=== PATIENT | female | born 1990 ===

== ENCOUNTER 2021-11-02 16:51 | Outpatient (CLI) | payer SELFPAY ==
[2021-11-02 18:38] LABS: Bacteria,Urine 1+ /HPF (Negative)
[2021-11-02 19:01] LABS: Color,Urine Yellow (Yellow)
[2021-11-02 19:31] VITALS: BP 116/67
== END 2021-11-02 19:37 | disposition home or self-care (01) ==
LOC: TRG 16:51 → APU 16:56 → TRG 19:37
PROVIDERS: ATTEND Obstetrics & Gynecology Gynecology
DX: Z34.93 Encounter for supervision of normal pregnancy, unspecified, third trimester (principal); Z3A.39 39 weeks gestation of pregnancy
CPT/HCPCS: 59025; 81001

== ENCOUNTER 2021-11-10 02:46 | Inpatient (IN) | payer SELFPAY ==
[2021-11-10] MEDS ORDERED: ePHEDrine SULFATE 50 MG/1 ML INJ IV PRN ×2 (03:29→12:00)
[2021-11-10] MEDS ORDERED: fentaNYL 100 MCG/2 ML INJ IV PRN ×2 (03:29→12:11)
[2021-11-10] MEDS ORDERED: METHYLERGONOVINE MALEATE 0.2 MG/ML VIAL IM PRN (03:29)
[2021-11-10] MEDS ORDERED: ACETAMINOPHEN 325 MG TAB PO PRN (03:29)
[2021-11-10] MEDS ORDERED: CARBOPROST TROMETHAMINE 250 MCG/1 ML INJ IM PRN (03:29)
[2021-11-10] MEDS ORDERED: TERBUTALINE 1 MG/1 ML INJ SUB-Q PRN (03:29)
[2021-11-10] MEDS ORDERED: BUTORPHANOL 2 MG/1 ML INJ IV PRN (03:29)
[2021-11-10] MEDS ORDERED: LACTATED RINGERS 1,000 ML IV SCH (03:30)
--- NOTE | 2021-11-10 03:33 | History and Physical Report ---
History of Present Illness Date of examination: 11/10/21 Date of admission: 11/10/2021 Chief complaint: Leaking of fluid History of present illness: 31-year-old primagravida at 40-4/7 weeks gestation presents to OB triage reporting leaking of fluid and contractions every 3 to 5 minutes apart. There is no vaginal bleeding. There is good movement. In OB triage, cervix was 3 cm dilated. ROM plus was negative. OB ultrasound limited revealed that JONATHAN= 2.5 cm. As such, this fulfills the contemporary criteria for oligohydramnios. Etiology is likely secondary to her post-due date status. The patient is admitted to labor and delivery for induction of labor secondary to oligohydramnios and post-due date. Past History - Obstetrical History Expected Date of Delivery: 11/06/21 Actual Gestation: 40 Week(s) 4 Day(s) : 1 Para: 0 Hx # Term Pregnancies: 0 Number of Pregnancies: 0 Spontaneous Abortions: 0 Induced : 0 Number of Living Children: 0 Medications and Allergies Allergies Allergy/AdvReac Type Severity Reaction Status Date / Time No Known Allergies Allergy Verified 11/02/21 17:28 Active Meds: Active Medications Acetaminophen (Acetaminophen 325 Mg Tab) 650 mg PO Q4H PRN PRN Reason: Pain, Mild (1-3) Butorphanol Tartrate (Butorphanol 2 Mg/1 Ml Inj) 2 mg IV Q2H PRN PRN Reason: Pain, Moderate(4-6) LABOR PAIN Carboprost Tromethamine (Carboprost Tromethamine 250 Mcg/1 Ml Inj) 250 mcg IM ONCE PRN PRN Reason: Uterine Bleeding Ephedrine Sulfate (Ephedrine Sulfate 50 Mg/1 Ml Inj) 10 mg IV Q2M PRN PRN Reason: Hypotension Fentanyl (Fentanyl 100 Mcg/2 Ml Inj) 100 mcg IV Q2H PRN PRN Reason: Pain,Severe (7-10) LABOR PAIN Oxytocin/Sodium Chloride (Pitocin/Ns 30 Unit/500ml) 30 units in 500 mls @ 2 mls/hr IV TITR MARNI; Protocol Lactated Ringer's (Lactated Ringers) 1,000 mls @ 125 mls/hr IV DIRECT MARNI Oxytocin/Sodium Chloride (Pitocin/Ns 30 Unit/500ml) 30 units in 500 mls @ 40 mls/hr IV TITR MARNI; Protocol Methylergonovine Maleate (Methylergonovine Maleate 0.2 Mg/Ml Vial) 0.2 mg IM ONCE PRN PRN Reason: Uterine Bleeding Terbutaline Sulfate (Terbutaline 1 Mg/1 Ml Inj) 0.25 mg SUB-Q ONCE PRN PRN Reason: Hyperstimulation/Hypertonicity Review of Systems All systems: negative - Physical Exam Breasts: Positive: normal Cardiovascular: Regular rate Lungs: Positive: Normal air movement Genitourinary (Female): Positive: normal external genitalia, normal perenium Vulva: both: normal Vagina: Positive: normal moisture Uterus: Positive: enlarged Adnexa: both: normal Anus/Rectum: Positive: normal perianal skin Extremities: Positive: normal Deep Tendon Reflex Grade: Normal +2 - Obstetrical FHR: category 1 Cervical Dilatation: 3 (Soft) Cervical Effacement Percentage: 50 (Mid) station: -3 Uterine Contraction Frequency (min): 3 Uterine Contraction Pattern: Regular Results Result Diagrams: 11/10/21 04:43 All other labs normal. Ultrasound: pending, report reviewed, other (OB Ultrasound Limited= SLIUP. Vertex. Fundal placenta. EFW= 3387 g (24th %-ile). JONATHAN= 2.5 cm.) Assessment and Plan - Patient Problems (1) 40 weeks gestation of Current Visit: Yes Status: Acute Plan to address problem: care is up-to-date. She is GBS negative. (2) Postmaturity , 40-42 weeks gestation Current Visit: Yes Status: Acute Plan to address problem: Admit to labor delivery for induction of labor. (3) Oligohydramnios in third trimester Current Visit: Yes Status: Acute Qualifiers: Fetus number: single or unspecified fetus Qualified Code(s): O41.03X0 - Oligohydramnios, third trimester, not applicable or unspecified Plan to address problem: OB ultrasound limited revealed that JONATHAN= 2.5 cm. ROM plus is negative. As such, this fulfills the contemporary criteria for the diagnosis of oligohydramnios. As such, induction of labor is medically indicated. (4) Encounter for induction of labor Current Visit: Yes Status: Acute Plan to address problem: Admit to labor and delivery. Start Pitocin per protocol. Artificially rupture membranes when possible.
[2021-11-10] MEDS ORDERED: OXYTOCIN DRIP 30 UNITS/500 ML BAG IV SCH ×2 (04:00)
--- NOTE | 2021-11-10 04:09 | Ultrasound Report ---
ULTRASOUND OBSTETRIC INDICATION / CLINICAL INFORMATION: Leaking of fluid, Post-due date. - Clinical Gestational Age (GA) in weeks, days: 40 weeks 4 days TECHNIQUE: Transabdominal. COMPARISON: None available. FINDINGS: Single intrauterine . Biparietal Diameter = 9.2 cm = 37, 2 weeks, days Head Circumference = 33.2 cm = 37, 6 weeks, days Abdominal Circumference = 34.6 cm = 38, 3 weeks, days Femur Length = 7.4 cm = 37, 5 weeks, days Average Ultrasound Age (AUA) = 37, 6 weeks, days Heart Rate: 135 beats per minute. Estimated Weight in grams (if calculated): 3387 Estimated Weight Growth Percentile (if calculated): 24% Position: cephalic. Placenta: Fundal and free of the os. Amniotic Fluid Volume: decreased Amniotic Fluid Index (JONATHAN) in cm (if calculated): 2.5 cm. Maternal Adnexa: No significant abnormality. IMPRESSION: 1. Single, living intrauterine with estimated sonographic age of 37 weeks, 6 days. 2. Oligohydramnios, likely secondary to premature rupture of membranes. Signer Name: Kristopher Silveira MD Signed: 11/10/2021 4:05 AM Workstation Name: [id number]
[2021-11-10 06:01] LABS: Hematocrit 32.4 % (30.3-42.9); Mean Corpuscular HGB Conc 34 % (30-34); Mean Corpuscular Volume 73 fl (79-97); Platelet Count 370 K/mm3 (140-440); Red Blood Count 4.42 M/mm3 (3.65-5.03); Red Cell Distribution Width 17.6 % (13.2-15.2)
[2021-11-10] MEDS ORDERED: fentaNYL-BUPIV 2 MCG/ML-0.125% 200 MCG/100 ML BAG EPIDURAL ONE (09:16)
--- NOTE | 2021-11-10 11:55 | Anesthesia Day of Surgery ---
Anesthesia Day of Surgery - Day of Surgery Patient Examined: Yes Patient H&P Reviewed: Yes Patient is NPO: Yes Beta Blockers: No Cardiac Clearance: No Pulmonary Clearance: No Ryan's Test: N/A
--- NOTE | 2021-11-10 11:55 | Anesthesia Consultation ---
Anesthesia Consult and Med Hx Date of service: 11/10/21 - Airway Anesthetic Teeth Evaluation: Good ROM Head & Neck: Adequate Mental/Hyoid Distance: Adequate Mallampati Class: Class II Intubation Access Assessment: Probably Good - Pulmonary Exam CTA: Yes - Cardiac Exam Cardiac Exam: RRR - Pre-Operative Health Status ASA Pre-Surgery Classification: ASA3 Proposed Anesthetic Plan: Epidural - Pulmonary Hx Smoking: No Hx Asthma: No Hx Respiratory Symptoms: No SOB: No COPD: No Home Oxygen Therapy: No Hx Pneumonia: No Hx Sleep Apnea: No - Cardiovascular System Hx Hypertension: No Hx Coronary Artery Disease: No Hx Heart Attack/AMI: No Hx Angina: No Hx Percutaneous Transluminal Coronary Angioplasty (PTCA): No Hx Cardia Arrhythmia: No Hx Pacemaker: No Hx Internal Defibrillator: No Hx Valvular Heart Disease: No Hx Heart Murmur: No Hx Peripheral Vascular Disease: No - Central Nervous System Hx Neuromuscular Disorder: No Hx Seizures: No CVA: No Hx Back Pain: No Hx Psychiatric Problems: No - Gastrointestinal Hx Ulcer: No Hx Gastroesophageal Reflux Disease: No - Endocrine Hx Renal Disease: No Hx End Stage Renal Disease: No Hx Cirrhosis: No Hx Liver Disease: No Hx Insulin Dependent Diabetes: No Hx Non-Insulin Dependent Diabetes: No Hx Thyroid Disease: No Hx Hypothyroidism: No Hx Hyperthyroidism: No - Hematic Hx Anemia: No Hx Sickle Cell Disease: No - Other Systems Hx Alcohol Use: No Hx Substance Use: No Hx Cancer: No Hx Obesity: Yes
--- NOTE | 2021-11-10 11:56 | Progress Note ---
Labor Epidural - Labor Epidural Start Time: 11:33 Stop Time: 11:44 Performed by:: NEELAM TREVINO Procedure: Epidural Requested for Labor Pain. H&P and PT Chart reviewed and consent obtained. Time out performed and the procedure was explained, all questions answered. Patient was placed in a sitting position with monitors applied. The PTs back was prepped and draped in usual sterile fashion. The Skin was localized with 3 mL of 1% lidocaine at L3-L4. A 17-gauge Touhy epidural needle was advanced to TONY with saline at 7 cm and no blood/CSF was noted via epidural needle. Epidural catheter was advanced to 12 cm. There was negative aspiration for blood and CSF in the catheter and negative response to a test dose of 3 ml 1.5% lidocaine w/ Epi and a sterile dressing was applied Patient tolerated the procedure well and there were no immediate complications noted.
[2021-11-10] MEDS ORDERED: NALOXONE 0.4 MG/1 ML INJ IV PRN (12:00)
[2021-11-10] MEDS: fentaNYL-BUPIV 2 MCG/ML-0.125% 200 MCG/100 ML BAG EPIDURAL SCH ×2 (12:27→20:21)
[2021-11-10] MEDS ORDERED: AMPICILLIN/NS 2 GM/100 ML 2 GM/100 ML BAG IV ONE (16:35)
--- NOTE | 2021-11-10 16:45 | Progress Note ---
Assessment and Plan A: IUP @ 40 4/7 Weeks Category I Tracing Elevated Maternal Temperature (100.3) Maternal Tachycardia Protracted Labor GBS Negative P: Internals x 2 Ampicillin 2G Now; then 1G q 4 hours Tylenol 650mg PO q 4-6 hours Continue Pitocin Augmentation Multiple Maternal Position Changes Subjective - Subjective Date of service: 11/10/21 Patient reports: movement normal, other (Resting well under epidural anesthesia) Objective - Vital Signs Vital Signs: Vital Signs - 12hr 11/10/21 11/10/21 11/10/21 04:44 04:49 04:54 Temperature Pulse Rate 84 88 90 Respiratory Rate Blood Pressure Blood Pressure [Right] O2 Sat by Pulse 98 99 99 Oximetry O2 Sat by Pulse Oximetry [ Bilateral Throughout] 11/10/21 11/10/21 11/10/21 04:59 05:04 05:09 Temperature Pulse Rate 87 90 90 Respiratory Rate Blood Pressure Blood Pressure [Right] O2 Sat by Pulse 97 100 98 Oximetry O2 Sat by Pulse Oximetry [ Bilateral Throughout] 11/10/21 11/10/21 11/10/21 05:14 05:19 05:24 Temperature Pulse Rate 91 H 89 97 H Respiratory Rate Blood Pressure Blood Pressure [Right] O2 Sat by Pulse 98 99 99 Oximetry O2 Sat by Pulse Oximetry [ Bilateral Throughout] 11/10/21 11/10/21 11/10/21 05:29 05:34 05:38 Temperature Pulse Rate 98 H 94 H 98 H Respiratory Rate Blood Pressure Blood Pressure [Right] O2 Sat by Pulse 99 99 100 Oximetry O2 Sat by Pulse Oximetry [ Bilateral Throughout] 11/10/21 11/10/21 11/10/21 05:41 05:43 05:48 Temperature Pulse Rate 94 H 86 Respiratory Rate Blood Pressure Blood Pressure [Right] O2 Sat by Pulse 99 99 Oximetry O2 Sat by Pulse 99 Oximetry [ Bilateral Throughout] 11/10/21 11/10/21 11/10/21 05:53 05:58 06:03 Temperature Pulse Rate 97 H 93 H 90 Respiratory Rate Blood Pressure Blood Pressure [Right] O2 Sat by Pulse 98 98 97 Oximetry O2 Sat by Pulse Oximetry [ Bilateral Throughout] 11/10/21 11/10/21 11/10/21 06:08 06:13 06:19 Temperature Pulse Rate 95 H 86 85 Respiratory Rate Blood Pressure Blood Pressure [Right] O2 Sat by Pulse 98 99 98 Oximetry O2 Sat by Pulse Oximetry [ Bilateral Throughout] 11/10/21 11/10/21 11/10/21 06:24 06:28 06:33 Temperature Pulse Rate 96 H 87 90 Respiratory Rate Blood Pressure Blood Pressure [Right] O2 Sat by Pulse 98 98 99 Oximetry O2 Sat by Pulse Oximetry [ Bilateral Throughout] 11/10/21 11/10/21 11/10/21 06:38 06:43 06:47 Temperature Pulse Rate 90 91 H 102 H Respiratory Rate Blood Pressure Blood Pressure [Right] O2 Sat by Pulse 98 98 93 Oximetry O2 Sat by Pulse Oximetry [ Bilateral Throughout] 11/10/21 11/10/21 11/10/21 06:48 06:53 06:58 Temperature Pulse Rate 95 H 96 H 97 H Respiratory Rate Blood Pressure Blood Pressure [Right] O2 Sat by Pulse 98 98 98 Oximetry O2 Sat by Pulse Oximetry [ Bilateral Throughout] 11/10/21 11/10/21 11/10/21 07:03 07:08 07:13 Temperature Pulse Rate 99 H 90 Respiratory Rate Blood Pressure Blood Pressure [Right] O2 Sat by Pulse 98 98 Oximetry O2 Sat by Pulse 99 Oximetry [ Bilateral Throughout] 11/10/21 11/10/21 11/10/21 07:14 07:18 07:24 Temperature Pulse Rate 101 H 95 H 101 H Respiratory Rate Blood Pressure Blood Pressure [Right] O2 Sat by Pulse 98 98 98 Oximetry O2 Sat by Pulse Oximetry [ Bilateral Throughout] 11/10/21 11/10/21 11/10/21 07:28 07:33 07:39 Temperature Pulse Rate 92 H 94 H 99 H Respiratory Rate Blood Pressure Blood Pressure [Right] O2 Sat by Pulse 98 99 98 Oximetry O2 Sat by Pulse Oximetry [ Bilateral Throughout] 11/10/21 11/10/21 11/10/21 07:43 07:48 07:53 Temperature Pulse Rate 97 H 99 H 99 H Respiratory Rate Blood Pressure Blood Pressure [Right] O2 Sat by Pulse 98 98 98 Oximetry O2 Sat by Pulse Oximetry [ Bilateral Throughout] 11/10/21 11/10/21 11/10/21 07:58 08:03 08:08 Temperature Pulse Rate 100 H 96 H 92 H Respiratory Rate Blood Pressure Blood Pressure [Right] O2 Sat by Pulse 97 98 97 Oximetry O2 Sat by Pulse Oximetry [ Bilateral Throughout] 0911/10/21 11/10/21 08:10 08:14 08:18 Temperature 98.6 F Pulse Rate 82 95 H 95 H Respiratory 18 Rate Blood Pressure Blood Pressure 128/75 [Right] O2 Sat by Pulse 98 98 98 Oximetry O2 Sat by Pulse Oximetry [ Bilateral Throughout] 11/10/21 11/10/21 11/10/21 08:23 08:29 08:33 Temperature Pulse Rate 104 H 95 H 98 H Respiratory Rate Blood Pressure Blood Pressure [Right] O2 Sat by Pulse 98 98 98 Oximetry O2 Sat by Pulse Oximetry [ Bilateral Throughout] 11/10/21 11/10/21 11/10/21 08:38 08:43 08:48 Temperature Pulse Rate 101 H 95 H 94 H Respiratory Rate Blood Pressure Blood Pressure [Right] O2 Sat by Pulse 97 97 99 Oximetry O2 Sat by Pulse Oximetry [ Bilateral Throughout] 11/10/21 11/10/21 11/10/21 08:53 08:58 09:03 Temperature Pulse Rate 92 H 90 89 Respiratory Rate Blood Pressure Blood Pressure [Right] O2 Sat by Pulse 97 99 99 Oximetry O2 Sat by Pulse Oximetry [ Bilateral Throughout] 11/10/21 11/10/21 11/10/21 09:08 09:13 09:18 Temperature Pulse Rate 97 H 96 H 92 H Respiratory Rate Blood Pressure Blood Pressure [Right] O2 Sat by Pulse 99 98 98 Oximetry O2 Sat by Pulse Oximetry [ Bilateral Throughout] 11/10/21 11/10/21 11/10/21 09:23 09:28 09:33 Temperature Pulse Rate 89 96 H 92 H Respiratory Rate Blood Pressure Blood Pressure [Right] O2 Sat by Pulse 98 98 98 Oximetry O2 Sat by Pulse Oximetry [ Bilateral Throughout] 11/10/21 11/10/21 11/10/21 09:39 09:43 09:48 Temperature Pulse Rate 83 81 82 Respiratory Rate Blood Pressure Blood Pressure [Right] O2 Sat by Pulse 98 98 99 Oximetry O2 Sat by Pulse Oximetry [ Bilateral Throughout] 11/10/21 11/10/21 11/10/21 09:54 09:58 10:00 Temperature Pulse Rate 91 H 87 90 Respiratory Rate Blood Pressure Blood Pressure [Right] O2 Sat by Pulse 99 99 94 Oximetry O2 Sat by Pulse Oximetry [ Bilateral Throughout] 11/10/21 11/10/21 11/10/21 10:03 10:08 10:13 Temperature Pulse Rate 87 86 86 Respiratory Rate Blood Pressure Blood Pressure [Right] O2 Sat by Pulse 98 97 99 Oximetry O2 Sat by Pulse Oximetry [ Bilateral Throughout] 11/10/21 11/10/21 11/10/21 10:18 10:23 10:28 Temperature Pulse Rate 89 91 H 98 H Respiratory Rate Blood Pressure Blood Pressure [Right] O2 Sat by Pulse 99 99 98 Oximetry O2 Sat by Pulse Oximetry [ Bilateral Throughout] 11/10/21 11/10/21 11/10/21 10:33 10:38 10:40 Temperature Pulse Rate 88 80 Respiratory 18 Rate Blood Pressure Blood Pressure [Right] O2 Sat by Pulse 97 97 Oximetry O2 Sat by Pulse Oximetry [ Bilateral Throughout] 11/10/21 11/10/21 11/10/21 10:43 10:48 10:53 Temperature Pulse Rate 81 81 81 Respiratory Rate Blood Pressure Blood Pressure [Right] O2 Sat by Pulse 96 96 97 Oximetry O2 Sat by Pulse Oximetry [ Bilateral Throughout] 11/10/21 11/10/21 11/10/21 10:58 11:03 11:08 Temperature Pulse Rate 85 78 83 Respiratory Rate Blood Pressure Blood Pressure [Right] O2 Sat by Pulse 99 98 99 Oximetry O2 Sat by Pulse Oximetry [ Bilateral Throughout] 11/10/21 11/10/21 11/10/21 11:13 11:18 11:23 Temperature Pulse Rate 88 78 83 Respiratory Rate Blood Pressure Blood Pressure [Right] O2 Sat by Pulse 97 99 99 Oximetry O2 Sat by Pulse Oximetry [ Bilateral Throughout] 11/10/21 11/10/21 11/10/21 11:28 11:32 11:33 Temperature Pulse Rate 89 98 H 107 H Respiratory Rate Blood Pressure Blood Pressure [Right] O2 Sat by Pulse 99 89 98 Oximetry O2 Sat by Pulse Oximetry [ Bilateral Throughout] 11/10/21 11/10/21 11/10/21 11:38 11:43 11:48 Temperature Pulse Rate 93 H 100 H 95 H Respiratory Rate Blood Pressure Blood Pressure [Right] O2 Sat by Pulse 100 99 99 Oximetry O2 Sat by Pulse Oximetry [ Bilateral Throughout] 11/10/21 11/10/21 11/10/21 11:53 11:58 12:03 Temperature Pulse Rate 88 82 93 H Respiratory Rate Blood Pressure 134/76 Blood Pressure [Right] O2 Sat by Pulse 100 100 100 Oximetry O2 Sat by Pulse Oximetry [ Bilateral Throughout] 11/10/21 11/10/21 11/10/21 12:08 12:13 12:16 Temperature Pulse Rate 97 H 94 H 88 Respiratory Rate Blood Pressure 107/65 Blood Pressure [Right] O2 Sat by Pulse 97 100 Oximetry O2 Sat by Pulse Oximetry [ Bilateral Throughout] 11/10/21 11/10/21 11/10/21 12:18 12:23 12:28 Temperature Pulse Rate 88 96 H 81 Respiratory Rate Blood Pressure Blood Pressure [Right] O2 Sat by Pulse 100 100 100 Oximetry O2 Sat by Pulse Oximetry [ Bilateral Throughout] 11/10/21 11/10/21 11/10/21 12:32 12:33 12:38 Temperature Pulse Rate 76 73 78 Respiratory Rate Blood Pressure 97/52 Blood Pressure [Right] O2 Sat by Pulse 100 100 Oximetry O2 Sat by Pulse Oximetry [ Bilateral Throughout] 11/10/21 11/10/21 11/10/21 12:43 12:47 12:48 Temperature Pulse Rate 84 74 83 Respiratory Rate Blood Pressure 96/52 Blood Pressure [Right] O2 Sat by Pulse 100 100 Oximetry O2 Sat by Pulse Oximetry [ Bilateral Throughout] 11/10/21 11/10/21 11/10/21 12:53 12:58 13:02 Temperature Pulse Rate 86 84 83 Respiratory Rate Blood Pressure 88/54 Blood Pressure [Right] O2 Sat by Pulse 100 100 Oximetry O2 Sat by Pulse Oximetry [ Bilateral Throughout] 11/10/21 11/10/21 11/10/21 13:03 13:08 13:13 Temperature Pulse Rate 76 88 81 Respiratory Rate Blood Pressure Blood Pressure [Right] O2 Sat by Pulse 100 100 100 Oximetry O2 Sat by Pulse Oximetry [ Bilateral Throughout] 11/10/21 11/10/21 11/10/21 13:16 13:18 13:23 Temperature Pulse Rate 85 78 73 Respiratory Rate Blood Pressure 94/54 Blood Pressure [Right] O2 Sat by Pulse 100 100 Oximetry O2 Sat by Pulse Oximetry [ Bilateral Throughout] 11/10/21 11/10/21 11/10/21 13:28 13:32 13:33 Temperature Pulse Rate 74 71 77 Respiratory Rate Blood Pressure 95/52 Blood Pressure [Right] O2 Sat by Pulse 100 100 Oximetry O2 Sat by Pulse Oximetry [ Bilateral Throughout] 11/10/21 11/10/2111/10/22 13:38 13:43 13:46 Temperature Pulse Rate 82 89 98 H Respiratory Rate Blood Pressure 100/55 Blood Pressure [Right] O2 Sat by Pulse 100 100 Oximetry O2 Sat by Pulse Oximetry [ Bilateral Throughout] 11/10/21 11/10/21 11/10/21 13:48 13:53 13:55 Temperature Pulse Rate 107 H 96 H 70 Respiratory Rate Blood Pressure Blood Pressure [Right] O2 Sat by Pulse 100 100 84 Oximetry O2 Sat by Pulse Oximetry [ Bilateral Throughout] 11/10/21 11/10/21 11/10/21 13:58 14:03 14:08 Temperature Pulse Rate 107 H 91 H 94 H Respiratory Rate Blood Pressure 119/71 Blood Pressure [Right] O2 Sat by Pulse 100 100 100 Oximetry O2 Sat by Pulse Oximetry [ Bilateral Throughout] 11/10/21 11/10/21 11/10/21 14:13 14:18 14:23 Temperature Pulse Rate 82 87 81 Respiratory Rate Blood Pressure 98/53 Blood Pressure [Right] O2 Sat by Pulse 100 100 99 Oximetry O2 Sat by Pulse Oximetry [ Bilateral Throughout] 11/10/21 11/10/21 11/10/21 14:28 14:33 14:38 Temperature Pulse Rate 94 H 94 H 95 H Respiratory Rate Blood Pressure 95/53 Blood Pressure [Right] O2 Sat by Pulse 100 100 100 Oximetry O2 Sat by Pulse Oximetry [ Bilateral Throughout] 11/10/21 11/10/21 11/10/21 14:43 14:46 14:48 Temperature Pulse Rate 91 H 88 93 H Respiratory Rate Blood Pressure 96/53 Blood Pressure [Right] O2 Sat by Pulse 100 100 Oximetry O2 Sat by Pulse Oximetry [ Bilateral Throughout] 11/10/21 11/10/21 11/10/21 14:53 14:57 14:58 Temperature 98.1 F Pulse Rate 90 87 Respiratory 16 Rate Blood Pressure Blood Pressure [Right] O2 Sat by Pulse 100 100 Oximetry O2 Sat by Pulse Oximetry [ Bilateral Throughout] 11/10/21 11/10/21 11/10/21 15:02 15:03 15:08 Temperature Pulse Rate 93 H 99 H 104 H Respiratory Rate Blood Pressure 96/54 Blood Pressure [Right] O2 Sat by Pulse 100 99 Oximetry O2 Sat by Pulse Oximetry [ Bilateral Throughout] 11/10/21 11/10/21 11/10/21 15:13 15:17 15:18 Temperature Pulse Rate 94 H 86 98 H Respiratory Rate Blood Pressure 109/53 Blood Pressure [Right] O2 Sat by Pulse 100 100 Oximetry O2 Sat by Pulse Oximetry [ Bilateral Throughout] 11/10/21 11/10/21 11/10/21 15:23 15:28 15:32 Temperature Pulse Rate 89 104 H 93 H Respiratory Rate Blood Pressure 105/54 Blood Pressure [Right] O2 Sat by Pulse 100 100 Oximetry O2 Sat by Pulse Oximetry [ Bilateral Throughout] 11/10/21 11/10/21 11/10/21 15:33 15:38 15:43 Temperature Pulse Rate 88 87 91 H Respiratory Rate Blood Pressure Blood Pressure [Right] O2 Sat by Pulse 100 100 100 Oximetry O2 Sat by Pulse Oximetry [ Bilateral Throughout] 11/10/21 11/10/21 11/10/21 15:46 15:48 15:53 Temperature Pulse Rate 89 92 H 88 Respiratory Rate Blood Pressure 108/55 Blood Pressure [Right] O2 Sat by Pulse 100 100 Oximetry O2 Sat by Pulse Oximetry [ Bilateral Throughout] 11/10/21 11/10/21 11/10/21 15:58 16:01 16:03 Temperature Pulse Rate 90 96 H 94 H Respiratory Rate Blood Pressure 112/58 Blood Pressure [Right] O2 Sat by Pulse 100 100 Oximetry O2 Sat by Pulse Oximetry [ Bilateral Throughout] 11/10/21 11/10/21 11/10/21 16:08 16:13 16:16 Temperature Pulse Rate 95 H 101 H 97 H Respiratory Rate Blood Pressure 115/60 Blood Pressure [Right] O2 Sat by Pulse 100 100 Oximetry O2 Sat by Pulse Oximetry [ Bilateral Throughout] 11/10/21 11/10/21 11/10/21 16:18 16:23 16:28 Temperature Pulse Rate 108 H 97 H 101 H Respiratory Rate Blood Pressure Blood Pressure [Right] O2 Sat by Pulse 100 100 95 Oximetry O2 Sat by Pulse Oximetry [ Bilateral Throughout] 11/10/21 11/10/21 16:31 16:33 Temperature Pulse Rate 110 H 106 H Respiratory Rate Blood Pressure 127/70 Blood Pressure [Right] O2 Sat by Pulse 100 Oximetry O2 Sat by Pulse Oximetry [ Bilateral Throughout] - Exam Breasts: normal Lungs: Normal air movement Abdomen: Present: normal appearance, soft Uterus: Present: normal, firm, fundal height above umbilicus FHR: category 1 Uterine Contraction Monitor Mode: Internal Cervical Dilatation: 5 Cervical Effacement Percentage: 80 station: -2 Uterine Contraction Pattern: Regular Uterine Tone Measurement Phase: Resting Uterine Contraction Intensity: Moderate Extremities: normal - Labs Labs: Abnormal Labs 11/10/21 04:43 MCV 73 L MCH 25 L RDW 17.6 H Laboratory Results - last 24 hr 11/10/21 11/10/21 11/10/21 03:24 04:43 04:43 WBC 10.0 RBC 4.42 Hgb 11.0 Hct 32.4 MCV 73 L MCH 25 L MCHC 34 RDW 17.6 H Plt Count 370 Membranes Rupture Negative SARS-CoV-2 (PCR) Blood Type O POSITIVE Antibody Screen Negative 11/10/21 10:57 WBC RBC Hgb Hct MCV MCH MCHC RDW Plt Count Membranes Rupture SARS-CoV-2 (PCR) Negative Blood Type Antibody Screen
[2021-11-10] MEDS ORDERED: AMPICILLIN/NS 1 GM/50 ML 1 GM/50 ML BAG IV SCH (17:00)
[2021-11-10] MEDS ORDERED: LIDOCAINE MPF (2%) 20 MG/1 ML VIAL 5 ML ONE (19:19)
[2021-11-11] MEDS ORDERED: SODIUM CHLORIDE 0.9% IRR 1,500 ML BOTTLE IR ONE (02:57)
[2021-11-11] MEDS ORDERED: WATER FOR IRRIG STERILE 1,500 ML BOTTLE IR ONE (02:57)
[2021-11-11] MEDS ORDERED: OXYTOCIN DRIP 30 UNITS/500 ML BAG IV SCH ×2 (03:00→06:00)
[2021-11-11] MEDS ORDERED: LIDOCAINE MPF (2%) 20 MG/1 ML VIAL 5 ML ONE (03:10)
[2021-11-11] MEDS ORDERED: ePHEDrine SULFATE 50 MG/1 ML INJ ONE (03:10)
[2021-11-11] MEDS ORDERED: PHENYLEPHRINE/NS 1,000 MCG/10 ML SYRINGE (OR USE) IV ONE (03:10)
[2021-11-11] MEDS ORDERED: BUPIVACAINE/PF (0.25%) 2.5 MG/ML 30 ML VIAL INFILTRATI ONE (03:21)
[2021-11-11] MEDS ORDERED: ONDANSETRON 4 MG/2 ML INJ ONE (03:31)
[2021-11-11] MEDS ORDERED: fentaNYL 100 MCG/2 ML INJ ONE (03:43)
[2021-11-11] MEDS ORDERED: ceFAZolin/Water 2 GM/20 ML 2 GM/20 ML SYRINGE IV NR (03:50)
[2021-11-11] MEDS ORDERED: BICITRA ORAL LIQD 30ML PO ONE (03:56)
[2021-11-11] MEDS ORDERED: AZITHROMYCIN/NS 500 MG/250 ML 500 MG/250 ML BAG IV ONE (03:56)
[2021-11-11] MEDS ORDERED: FAMOTIDINE 20 MG/2 ML INJ IV ONE (03:56)
[2021-11-11] MEDS ORDERED: METOCLOPRAMIDE 10 MG/2 ML INJ IV ONE (03:56)
[2021-11-11] MEDS ORDERED: LIDOCAINE 2%/EPINEPHRINE 1:200,000 VIAL (20 ML) INFILTRATI ONE ×2 (04:55→04:57)
[2021-11-11] MEDS ORDERED: ceFAZolin 1 GM VIAL ONE (04:59)
[2021-11-11] MEDS ORDERED: MORPHINE 4 MG/1 ML INJ IV PRN (05:20)
[2021-11-11] MEDS ORDERED: ONDANSETRON 4 MG/2 ML INJ IV PRN (05:20)
[2021-11-11] MEDS ORDERED: NALOXONE 0.4 MG/1 ML INJ IV PRN (05:20)
[2021-11-11] MEDS ORDERED: PROMETHAZINE 25 MG RECT SUPP PR PRN (05:20)
[2021-11-11] MEDS ORDERED: HYDROmorphone 1 MG/1 ML INJ IV PRN (05:20)
[2021-11-11] MEDS ORDERED: PROMETHAZINE 25 MG TAB PO PRN (05:20)
[2021-11-11] MEDS ORDERED: diphenhydrAMINE 50 MG/ML VIAL IV PRN (05:20)
--- NOTE | 2021-11-11 05:33 | Procedure Note ---
OB Delivery Note - Delivery Date of Delivery: 11/11/21 Surgeon: TORRES SMITH Estimated blood loss: 300cc - Section Preop diagnosis: other (1.) IUP at 40-5/7 weeks, 2.) Oligohydramnios, 3.) Category 3 EFM, 4.) Elevated BP, R/O pre-eclampsia.) Postop diagnosis: other (1.) IUP at 40-5/7 weeks, 2.) Oligohydramnios, 3.) Category 3 EFM, 4.) Elevated BP, R/O pre-eclampsia, 5.) Meconium.) section procedure: primary low transverse Disposition: PACU Complications: other ( .) Narrative: PREOPERATIVE DIAGNOSES: 1.) Intrauterine at 40-5/7 weeks gestation. 2.) Oligohydramnios. 3.) Category 3 heart rate tracing. 4.) Elevated blood pressure, rule-out pre-eclampsia. POSTOPERATIVE DIAGNOSES: 1.) Intrauterine at 40-5/7 weeks gestation. 2.) Oligohydramnios. 3.) Category 3 heart rate tracing. 4.) Elevated blood pressure, rule-out pre-eclampsia. 5.) Meconium. PROCEDURE PERFORMED: Primary low-transverse delivery with vacuum assistance. SURGEON: Torres Smith M.D. ANESTHESIA: Epidural. FLUIDS: 2000 mL Lactated Ringer's. ESTIMATED BLOOD LOSS: 300 mL. URINE OUTPUT: 600 mL. COMPLICATIONS: . PATHOLOGY: Placenta sent for pathological examination. FINDINGS: Apgars were 0 at 1 minute, 0 at 5 minutes, 0 at 10 minutes, and 0 at 15 minutes. Normal uterus, tubes, and ovaries were noted. INDICATIONS: The patient is a 31 year-old primagravida at 40-5/7 weeks gestation that was undergoing induction of labor secondary to oligohydramnios. Pitocin was agent that was ordered for induction of labor. Membranes were artificially ruptured. The patient received an epidural. Subsequently, the patient achieved complete cervical dilation, 100% effacement, and 0 station. However, shortly thereafter, the heart rate tracing abruptly changed to a Category 3 heart rate tracing. With shared decision making, the decision was made to proceed with a primary low transverse section. The procedure was described to the patient in detail including possible risks of bleeding, infection, injury to surrounding organs, and possible need for further surgery. Verbal consent was obtained prior to proceeding with the procedure. 0225= Complete cervical dilation to 10 cm. 0238= R.N. summoned M.D. by telephone. 0243= M.D. in LDR #9. 0256= Leaving LDR #9 to O.R.. 0324= Delivery. PROCEDURE NOTE: The patient was taken to the operating room where epidural anesthesia was found to be adequate. Preoperative Ancef and azithromycin were administered. The patient was prepped and draped in the usual sterile fashion in the dorsal supine position with a left-perrin tilt. A Pfannenstiel skin incision was made with the scalpel. That incision was carried through to the underlying layer of fascia using the Bovie. The fascia was incised in the midline with the Bovie and extended laterally using the Bovie. Nat clamps were used to elevate the superior aspect of the fascial incision, which was elevated, and the underlying rectus muscles were dissected off with the Bovie. Attention was then turned to the inferior aspect of the fascial incision, which in similar fashion was grasped with Nat clamps, elevated, and the underlying rectus muscles were dissected off using Phillips scissors and the Bovie. The rectus muscles were dissected in the midline with the Bovie. The peritoneum was sharply dissected with the Metzenbaum scissors, entered, and extended superiorly and inferiorly with good visualization of the bladder. The Lito self-retaining retractor was inserted. The vesicouterine peritoneum was identified with pickups and entered sharply using Metzenbaum scissors. This incision was extended laterally and the bladder flap was created digitally. The bladder blade was inserted. The lower uterine segment was incised in a transverse fashion using the scalpel and extended using manual traction. Meconium was noted. The head was gently elevated out of the pelvis towards the uterine incision. The Kiwi Omnicup as utilized to assist delivering the head atraumatically. Thereafter, the remainder of the infant was delivered atraumatically. There was a nuchal cord and body cord noted during this process. The cord was clamped and cut. The was subsequently handed to the awaiting neonatology team. Cord gases were obtained and sent to the lab for evaluation. Cord blood was obtained. Subsequent to the collection of this blood, the placenta spontaneously expelled intact with a 3-vessel cord noted and meconium staining. The uterus was cleared of all clots and debris. The uterus was left in situ. The uterine incision was repaired with 0 Monocryl in a running fashion. Then, the uterine incision was repaired with a second layer of 0 Monocryl in a horizontal imbricating fashion. The vesicouterine peritoneum was then reapproximated with 3-0 Vicryl in a running fashion. Hemostasis was visualized. Subsequently, the Lito retractor was removed. The pelvis was copiously irrigated. The uterine incision was reexamined and was noted to be hemostatic. The parietal peritoneum was reapproximated with 3-0 Vicryl in a running fashion. Then, the rectus muscles were reapproximated in the midline using 2-0 chromic. The fascia was closed with 0 Vicryl. Then, the subcutaneous layer was closed with 2-0 chromic gut interrupted sutures. Subsequently, the skin was closed with 3-0 Vicryl in a running subdermal fashion. The skin edges were tension-free and well approximated, so Dermabond was then placed atop the skin. Sponge, lap, and instrument counts were correct x2. The patient was stable at the completion of the procedure and was subsequently transferred to the recovery room in stable condition. The neonatology team was unable to resuscitate the infant. Postoperatively, I spoke with the patient, the patient's , and the patient's [id number] in Lithuanian to discuss the findings. In addition, I expressed my condolences. Preeclampsia labs, UPCR, 24 hour urine collection, lactic acid level, blood cultures and urine culture were ordered also. If these tests suggest pre- eclampsia, then I will order an intravenous infusion of magnesium sulfate for 24 hours If these tests suggest sepsis, then I will order intravenous antibiotics and intravenous fluids. - Infant A at 1 minute: 0 at 5 minutes: 0 Infant Gender: Female (Umbilical artery cord gasses were obtained and sent to the lab. Please refer to neonatology records for further information.)
[2021-11-11] MEDS ORDERED: SIMETHICONE 80 MG CHEW TAB PO PRN (05:38)
[2021-11-11] MEDS ORDERED: ACETAMINOPHEN 325 MG TAB PO PRN (05:38)
[2021-11-11] MEDS ORDERED: IBUPROFEN 800 MG TAB PO PRN (05:38)
[2021-11-11] MEDS ORDERED: HYDROcodone/ACETAMINOPHEN 5-325 MG TAB PO PRN (05:38)
--- NOTE | 2021-11-11 05:50 | Procedure Note ---
- Addendum Date: 11/11/21 Attendance - Indication Indication for delivery Attendance: Non-reassuring Status Mode of Delivery: Delivery Room Comment: NICU team called by OB to attend C/S for nonreassuring heart tracing. Fetus was delivered, brought to warmer with no heart rate. Nevertheless, NRP steps were performed with no detectable heart rate despite adequate ventilation and multiple doses of epinephrine. Attempted resuscitation discontinued after 30 minutes with HR still 0. APGARs 0,0,0,0. Family members were notified using Indonesian registered dental assistant. - at 1 minute: 0 at 5 minutes: 0 at 10 minutes: 0 at 15 minutes: 0
[2021-11-11] MEDS ORDERED: fentaNYL-BUPIV 2 MCG/ML-0.125% 200 MCG/100 ML BAG EPIDURAL SCH (06:00)
[2021-11-11 06:26] LABS: Mean Corpuscular HGB Conc 30 % (30-34); Mean Corpuscular Volume 76 fl (79-97); Platelet Count 372 K/mm3 (140-440); Red Blood Count 4.14 M/mm3 (3.65-5.03); Red Cell Distribution Width 17.9 % (13.2-15.2)
[2021-11-11 06:33] LABS: Hematocrit 31.2 % (30.3-42.9); Hemoglobin 9.4 gm/dl (10.1-14.3)
[2021-11-11 06:44] LABS: Creatinine,Urine 50.1 mg/dL (0.1-20.0)
[2021-11-11 06:45] LABS: Alanine Aminotransferase 7 units/L (7-56); Albumin 3.1 g/dL (3.9-5); Blood Urea Nitrogen 6 mg/dL (7-17); Calcium 8.6 mg/dL (8.4-10.2); Hemolysis Index 0; Uric Acid 6.4 mg/dL (3.5-7.6)
[2021-11-11 06:46] LABS: Bilirubin,Urine NEG (Negative); Blood,Urine MOD (Negative); Color,Urine Yellow (Yellow); Mucus,Urine FEW /HPF; Urobilinogen,Urine < 2 mg/dL (<2.0)
[2021-11-11 06:46] LABS: BUN/Creatinine Ratio 9
[2021-11-11] MEDS: HYDROmorphone 1 MG/1 ML INJ IV PRN ×2 (06:58→16:00)
[2021-11-11] MEDS ORDERED: SODIUM CHLORIDE 0.9% 1000 ML 1,000 ML IV ONE (08:00)
[2021-11-11] MEDS ORDERED: MAGNESIUM SULFATE 4 GM/100 ML BAG IV SCH (08:00)
[2021-11-11] MEDS ORDERED: AMPICILLIN 2 GM in SODIUM CHLORIDE 0.9% 50 ML IV SCH (08:00)
[2021-11-11] MEDS: SODIUM CHLORIDE 0.9% 1000 ML 1,000 ML IV SCH ×3 (08:20→19:19)
[2021-11-11 08:21] LABS: Anisocytosis 1+; Band Neutrophils # (Manual) 0.4 K/mm3; Basophils % (Manual) 0 % (0.0-1.8); Eosinophils % (Manual) 0 % (0.0-4.3); Platelet Estimate Consistent w Auto; Total Cells Counted 100
[2021-11-11] MEDS ORDERED: MAGNESIUM SULFATE 40GM/1000ML 40 GM/1,000 ML BAG IV SCH (08:30)
[2021-11-11] MEDS: AMPICILLIN/NS 2 GM/100 ML 2 GM/100 ML BAG IV SCH ×2 (09:35→15:24)
[2021-11-11] MEDS ORDERED: GENTAMICIN 370 MG in SODIUM CHLORIDE 0.9% 100 ML IV SCH (10:00)
[2021-11-11] MEDS ORDERED: HEPARIN 5,000 UNIT/1 ML VIAL SUB-Q SCH (10:00)
[2021-11-11 15:55] VITALS: BP 108/55
--- NOTE | 2021-11-11 21:43 | Post Anesthesia Evaluation ---
- Post Anesthesia Evaluation Patient Participated: No Airway Patent: Yes Stable Respiratory Function: Yes Nausea/Vomiting: No Temp > 96.8F: Yes Pain Manageable: Yes Adequeate Hydration: Yes Anesthesia Complications: No Block Receding Appropriately: Yes Patient on Ventilator: No
== END 2021-11-11 23:42 | disposition home or self-care (01) | DRG 787 ==
LOC: TRG 02:46 → APU 02:48 → LD 03:29 → TRG 08:32 → LD 11-11 07:13
PROVIDERS: ADMIT Obstetrics & Gynecology Gynecology; ATTEND Obstetrics & Gynecology Gynecology
PROC: 10D00Z1 Extraction of Products of Conception, Low, Open Approach (ICD-10-PCS; principal; 2021-11-11)
DX: O76 Abnormality in fetal heart rate and rhythm complicating labor and delivery (principal); O41.03X0 Oligohydramnios, third trimester, not applicable or unspecified; O77.0 Labor and delivery complicated by meconium in amniotic fluid; O48.0 Post-term pregnancy; O99.214 Obesity complicating childbirth; Z3A.40 40 weeks gestation of pregnancy; Z20.822 Contact with and (suspected) exposure to COVID-19; Z37.1 Single stillbirth
CPT/HCPCS: 36415; 76816; 80053; 81001; 82140; 82239; 82570; 83615; 83735; 84112; 84156; 84550; 85007; 85025; 85027; 86850; 86900; 86901; 87040; 87086; 88307; G0378; J3490; J0290; J0690; J1170; J1580; J1644; J2370; J2405; J2590; J3010; J3475; J7030; U0003